=== PATIENT | female | born 1975 | race Hispanic/Latino ===

== ENCOUNTER 2016-05-27 05:53 | Observation (INO) | payer MEDICAID ==
--- NOTE | 2016-05-24 11:04 | Anesthesia Consultation ---
Anesthesia Consult and Med Hx Date of service: 05/24/16 (Scheduled for ALEXA su/ Dr. Castro on 05/27) - Airway Anesthetic Teeth Evaluation: Good ROM Head & Neck: Adequate Mental/Hyoid Distance: Adequate Mallampati Class: Class I Intubation Access Assessment: Probably Good - Pulmonary Exam CTA: Yes - Cardiac Exam Cardiac Exam: RRR - Pre-Operative Health Status ASA Pre-Surgery Classification: ASA2 Proposed Anesthetic Plan: General Nerve Block: TAP - Pre-Anesthesia Comment Pre-Anesthesia Comments: Pt denies previous anesthesia complications. She does have and smoking history with some wheezing on exam in pre-assessment. She reports she is out of her inhalers. Pt advised to go to PCP for further treatment prior to surgery. Pt has multiple body piercing and reports she is unable to remove any of her metal. Risks discussed with pt and she was advised she will to sign a release form on DOS if not removed. - Pulmonary Hx Smoking: Yes (1/2 PPD) Hx Asthma: Yes (last treated over 1 year ago, recent wheezing-out of inhaler) Hx Sleep Apnea: No - Central Nervous System Hx Psychiatric Problems: Yes (PTSD, bipolar d/o, depression) - Gastrointestinal Hx Gastroesophageal Reflux Disease: Yes (occassional) - Endocrine Hx Renal Disease: No Hx Non-Insulin Dependent Diabetes: No Hx Hypothyroidism: Yes - Other Systems Hx Alcohol Use: Yes (occas) Hx Substance Use: Yes (marijuana daily) Hx Cancer: No Hx Obesity: Yes (BMI= 36)
[2016-05-24 11:16] LABS: Basophils % (Auto) 0.5 % (0.0-1.8); Eosinophils % (Auto) 4.9 % (0.0-4.3); Hematocrit 40.7 % (30.3-42.9); Hemoglobin 13.1 gm/dl (10.1-14.3); Mean Corpuscular HGB Conc 32 % (30-34); Mean Corpuscular Volume 78 fl (79-97); Platelet Count 250 K/mm3 (140-440); Red Blood Count 5.22 M/mm3 (3.65-5.03); Red Cell Distribution Width 17.4 % (13.2-15.2); White Blood Count 9.4 K/mm3 (4.5-11.0)
[2016-05-24 11:17] LABS: Mean Corpuscular Hemoglobin 25 pg (28-32)
[2016-05-24 11:39] LABS: Anion Gap 15 mmol/L; Blood Urea Nitrogen 12 mg/dL (7-17); Calcium 8.8 mg/dL (8.4-10.2); Carbon Dioxide 24 mmol/L (22-30); Chloride 103.7 mmol/L (98-107); Glucose 112 mg/dL (65-100); Sodium 139 mmol/L (137-145)
[2016-05-27] MEDS ORDERED: NACL 0.9% 1000 ML 1,000 ML IV SCH (06:00)
[2016-05-27] MEDS ORDERED: VERSED IV NR (06:00)
[2016-05-27] MEDS ORDERED: PEPCID PO NR (06:00)
[2016-05-27] MEDS ORDERED: ANCEF/STERILE WATER 2 GM/20 ML IV NR (06:31)
[2016-05-27] MEDS ORDERED: NACL BACTERIOSTATIC INFILTRATI ONE (06:44)
[2016-05-27] MEDS ORDERED: ZOFRAN IV PRN ×2 (06:45→11:39)
--- NOTE | 2016-05-27 06:45 | Anesthesia Day of Surgery ---
Anesthesia Day of Surgery - Day of Surgery Patient Examined: Yes Patient H&P Reviewed: Yes Patient is NPO: Yes
--- NOTE | 2016-05-27 06:52 | Short Stay Summary ---
Short Stay Documentation Date of service: 05/27/16 Narrative H&P: C/O: Cervical dysplasia 40-year-old presents for hysterectomy. She is status post colposcopy on 04/13/2016 for LGSIL with results showing LILLIAM-3 and LILLIAM-2, invasive component cannot definitely be ruled out. She is status post transvaginal ultrasound out of the [facility] showed 11 cm uterus with fundal fibroid measuring 3 cm Endometrial biopsy is negative [employer] history irregular cycles, occasionally has 2 cycles per month, heavy last 7 days Medhx: Hypothyroidism on Synthroid, asthma, impaired GGT Sughx: Bilateral tubal ligation, liver biopsy which was negative Obhx: # 5 (last in 2004) Meds:Synthroid ALL:NKDA Fshx:Single, smoker Exam shows obesity otherwise unremarkable A: Severe cervical Dysplasia here for LAVH P: -After discussion of options for care, patient desires a hysterectomy. Explained that this will be an LAVH. We reviewed risks of surgery including but not limited to injury to surrounding organs and tissues especially the urinary system system. All her questions were answered and she signed consent -Proceed with surgery once OR available - History Past Medical History: hypothyroidism, other (Asthma) Past Surgical History: Other (Laoparoscopic tubal, liver biopsy) Social history: single, smoking, full code, no alcohol abuse, no prescription drug abuse, no IV drug use - Allergies and Medications Current Medications: Allergies No Known Allergies Allergy (Unverified 05/20/16 14:55) Home Medications Medication Instructions Recorded Confirmed Last Taken Type Biotin 1 mg PO DAILY 05/20/16 05/20/16 Unknown History Levothyroxine [Synthroid] 75 mcg PO QAM 05/20/16 05/20/16 Unknown History metFORMIN [Glucophage] 500 mg PO QDAY 05/20/16 05/20/16 Unknown History Active Medications Cefazolin Sodium (Ancef/Sterile Water 2 Gm/20 Ml) 2 gm IV PREOP NR Stop: 05/27/16 23:59 Famotidine (Pepcid) 20 mg PO PREOP NR Stop: 05/27/16 23:59 Hydromorphone HCl (Dilaudid) 0.5 mg IV Q10MIN PRN PRN Reason: Pain , Severe (7-10) Stop: 05/30/16 06:46 Sodium Chloride (Nacl 0.9% 1000 Ml) 1,000 mls @ 75 mls/hr IV DIRECT SAMIR Midazolam HCl (Versed) 2 mg IV PREOP NR Stop: 05/27/16 23:59 Ondansetron HCl (Zofran) 4 mg IV ONCE PRN PRN Reason: Nausea And Vomiting Stop: 05/27/16 06:46 - Physical exam General appearance: no acute distress, obese Lungs: Clear to auscultation, Normal air movement Breasts: deferred Heart: Regular rate, Normal S1, Normal S2 Gastrointestinal: normal, normoactive bowel sounds, no tenderness, no distended , no masses, no guarding, no organomegaly Female Genitourinary: normal Rectal Exam: deferred Extremities: no ischemia Short Stay Discharge Plan Follow up with: ESTHER PADILLA MD [Primary Care Provider] - 7 Days
[2016-05-27] MEDS ORDERED: NACL 0.9% 500 ML 500 ML IV ONE ×2 (06:54→07:33)
[2016-05-27] MEDS ORDERED: MARCAINE 0.25% INFILTRATI ONE ×2 (07:10→10:00)
[2016-05-27] MEDS ORDERED: DIPRIVAN 10 MG/ML IV ONE (07:21)
[2016-05-27] MEDS ORDERED: ZEMURON IV ONE (07:22)
[2016-05-27] MEDS ORDERED: XYLOCAINE MPF 2% ONE (07:22)
[2016-05-27] MEDS ORDERED: ROBINUL ONE (08:52)
[2016-05-27] MEDS ORDERED: NEOSTIGMINE ONE (08:52)
[2016-05-27] MEDS ORDERED: NACL 0.9% 1000 ML 0 ML ONE (09:07)
[2016-05-27] MEDS ORDERED: NACL 0.9% IR ONE (10:00)
[2016-05-27] MEDS ORDERED: ANCEF ONE (10:13)
[2016-05-27] MEDS ORDERED: NACL 0.9% 1000 ML 2,000 ML ONE (10:28)
--- NOTE | 2016-05-27 11:33 | Post Anesthesia Evaluation ---
- Post Anesthesia Evaluation Patient Participated: Yes Airway Patent: Yes Stable Respiratory Function: Yes Nausea/Vomiting: No Temp > 96.8F: Yes Pain Manageable: Yes Adequeate Hydration: Yes Anesthesia Complications: No
--- NOTE | 2016-05-27 11:38 | Operative Report ---
Operative Report Operative Report: DATE: 05/27/2016 PREOPERATIVE DIAGNOSIS: LILLIAM 3, Abnormal uterine bleeding,Fiibroid uterus POSTOP DIAGNOSIS: As above NAME OF PROCEDURE: Laparoscopic assisted vaginal hysterectomy with bilateral salpingectomy SURGEON: AMBROCIO LUNA MD PRIMARY TEACHING ASSISTANT: GALE SALAS ANESTHESIA: Gen. EBL: 300 mL PATHOLOGY SPECIMEN: Uterus, cervix and tubes URINE OUTPUT: 200 mL FINDINGS: Bulky appearing enlarged uterus, normal ovaries and tubes bilaterally , obesity with substantial subcutaneous fat, surgery was made difficult by obesity DESCRIPTION OF PROCEDURE: After informed consent, patient was taken to the operating room where she was prepped and draped in a sterile fashion. She was placed in dorsolithotomy position then a shah catheter was placed without difficulty . Nice speculum speculum was placed in the patient's vagina and single-tooth was used to grab the anterior lip. A Brandpotionare uterine manipulator was advanced into the patient's cervical os without difficulty and the balloon was inflated. Attention was then turned to the patient's abdomen where 1/4 percent Marcaine was injected then a 1-1/2 cm incision was made in the umbilical fold; using S retractors, the subcutaneous tissue was dissected down to exposed the fascia. Fascia was grasped with Sayra forceps, elevated and an incision was made in the midline using Metzenbaum scissors. Fascial incision was extended with use of Shahla forceps and then S retractors were placed in the incisional hole. Peritoneal layer was seen and grasped with Allises 2; this was elevated and incision was made in the midline using Metzenbaum scissors. S retractors were placed in the incisional hole in the peritoneum and then a Extra long Cooper trocar was advanced into the patient's abdomen without difficulty. CO2 gas was used to obtain intra-abdominal insufflation. Bulbous enlarged uterus was noted immediately; normal ovaries and tubes bilaterally. Attention was then turned to the patient's left and right lower quadrants where under direct visualization 10 mm trocars were advanced into the patient's abdomen without difficulty. Using 10 mm LigaSure, the round ligaments and the utero- ovarian ligaments on both sides were grasped and cauterized and transected. A bladder flap was created and pushed down the cervix towards the vagina. Uterine arteries on both sides were grasped with LigaSure then cauterized and transected. After a period of observation confirming hemostasis attention was then turned to the patient's vagina. The Shah catheter and a Vcare uterine manipulator were removed, and weighted speculum was placed in the patient's vagina. A single tenaculum was then used to grab the cervix. Using bovie, a circumferential incision was made around the cervix; the vaginal cuff was then pushed cephalad away from the cervix. Attention was then turned to the patient's posterior fornix; using smooth pickups, the peritoneal layer covering the posterior fornix was grasped, elevated and an incision made using Metzenbaums. Entry into the peritoneal cavity was confirmed then the long weighted speculum was placed into into the peritoneal opening. We then proceeded to serially grab the uterosacrals on both sides using Alisa forceps; these were clamped cut and suture ligated using 0 Vicryl. We Serially grabbed the cardinal ligament complex on both sides with Alisa clamps and proceeded to clamp cut and suture ligate these. We made sure the bladder was bladder flap was pushed away from our surgical site. The broad and the utero-ovarian ligaments had been previously transected from above. The uterus was then delivered from the vagina and removed from the surgical field. We then grabbed the vaginal cuff with Allis forceps and elevated this; using 0 Vicryl on a runner angle stitch was placed on the vaginal cuff and then the posterior cuff was closed in a running locked fashion. The anterior cuff was then closed using 0 Vicryl. This process disclosed entire vaginal cuff. We then turned our attention back to the patient's abdomen with insufflation was again obtained using CO2 gas. 10 mm laparoscope was advanced into the patient's abdomen without difficulty. The right and left fallopian tubes were then grasped and elevated and cauterized and transected using 10 mm LigaSure. Inspection of the vaginal cuff showed hemostasis; copious amounts of suction irrigation were used showing no active bleeding. This was despite reducing the intra-abdominal pressure slightly. Tisseel hemostatic agent was then placed over the vaginal cuff as a means to prevent future bleeding, Shruti was applied when mild oozing continued. All instruments were then withdrawn from the patient 's abdomen under direct visualization. Using steffanie harden, the fascial openings were closed using 0 Vicryl with a single [id number] stitch and then the skin was closed in a subcuticular manner with 4-0 Monocryl. Instrument counts were correct 2; she tolerated the procedure well she did receive 2 g of Ancef prior to the procedure and was transferred the PACU in stable condition thank you
[2016-05-27] MEDS ORDERED: SODIUM CHLORIDE FLUSH SYRINGE 10 ML IV PRN (11:39)
[2016-05-27] MEDS ORDERED: NARCAN 0.4 MG/1 ML IV PRN (11:39)
[2016-05-27] MEDS ORDERED: TYLENOL PO PRN (11:39)
[2016-05-27] MEDS ORDERED: MILK OF MAGNESIA PO PRN (11:39)
[2016-05-27] MEDS ORDERED: CLIMARA TD SCH (12:00)
[2016-05-27] MEDS: DILAUDID IV PRN ×2 (12:10→12:20)
[2016-05-27] MEDS: D5LR 1,000 ML IV SCH ×2 (13:30→23:53)
[2016-05-27] MEDS: NORCO 5/325 PO PRN (13:30)
[2016-05-27] MEDS: DILAUDID PCA 6MG/30ML IV SCH ×2 (15:05)
--- NOTE | 2016-05-27 15:57 | Admit Criteria Form ---
Admission Criteria Documentation: AMBULATORY SURGERY EXCEPTION CRITERIA Ambulatory Surgery Exception Criteria ( Place 'X' for any and all applicable criteria): Surgery or procedure performed on ambulatory basis may require inpatient stay for[A] ANY ONE of the following(1)(2)(3)(4)(5)(6)(7)(8)(9): [X I. A preoperative situation, condition, or finding that warrants inpatient stay as indicated by ANY ONE of the following: [X] a) Inpatient care needed because of severity of a disease or condition rather than the surgery (eg, severe cardiac or respiratory disease, severe infection) (15) (16 ) (17) (18) [] b) Emergent procedure (eg, angioplasty for acute ischemia)(19) [] c) Complex surgical approach or situation as indicated by ANY ONE of the following(3): [] i) Open approach needed instead of usual endoscopic, transcatheter, or other less invasive procedure [] ii) Difficult approach because of previous operation [] iii) Airway monitoring required after open neck procedures(20)(21) [] iv) Large mass requiring unusually extensive dissection [] v) Additional complicating feature requiring inpatient care (eg, drain management)(22(23): [] d) Major surgery in a pt with high anesthetic risk as indicated by ANY ONE of the following (2)(3)(5)(7)(8): [] i) ASA risk class III or higher (severe systemic disease impairing function) [D] [] ii) Advanced age (eg, older than 85 years)(14)(24) [] iii) Symptomatic heart failure(25) [] iv) Symptomatic asthma or COPD(8)(21) [] v) Morbid obesity with hemodynamic or respiratory problems(20)( 21)(26)(27) [] vi) Obstructive sleep apnea(20)(21) [] vii) Former premature infants who are younger than 60 weeks [] viii) High risk for severe postoperative abnormalities (eg, severe postoperative hypocalcemia after parathyroidectomy for severe hyperparathyroidism)(27)( 28) [] ix) Unstable angina(25) [] e) Drug-related risk requiring inpatient stay as indicated by ANY ONE of the following(5)(10)(14)(32)(33) [] i) Procedure requires discontinuing drugs or other therapy (eg , antiarrhythmic medication, antiseizure medication), which necessitates inpatient observation or treatment.(18)(31) [] ii) Major surgery and high risk drug use as indicated by ANY ONE of the following: [] 1) Active abuse of cocaine or similar drug [] 2) Monoamine oxidase inhibitor use [] 3) Other drug identified as posing risk [] f) Inadequate outpatient care situation as indicated by ANY ONE of the following(5)(10)(14)(32)(33) [] i) Patient lives remote from medical facility and procedure has urgent complication potential, and temporary nearby residence cannot be arranged [] ii) Patient will have postprocedure incapacitation and inadequate assistance at home, or alternative level of care cannot be arranged. [] iii) Patient will have long general anesthesia or procedure side effect resolution time, and competent person to stay with patient on first postoperative night at home or alternative level of care cannot be arranged. []iv) Other inadequate outpatient situation that cannot be handled by other means [] II. A perioperative event, condition, or finding that warrants inpatient stay as indicated by ANY ONE of the following (1)(2)(3): [] a) Inadequate physiologic recovery: cardiovascular, respiratory, or hemodynamic status not normal or near preoperative baseline(18) [] b) Hemodynamic instability [] c) Patient not alert with near normal or baseline mental status [] d) Temperature not normal or as expected and not appropriate for outpatient treatment of condition [] e) Ambulatory or appropriate activity level status not yet achieved post procedure [E](34)(35)(36) [] f) Operative site not appropriate (eg, unexpected or excessive drainage or bleeding) [] g) Postoperative effects not resolved or adequately managed (eg, significant pain or vomiting not appropriate for outpatient or next level of care)(10)(12) [] h) Complicating features requiring inpatient care as indicated by ANY ONE of the following(37): [] i) Severe complications of procedure (eg, bowel injury, airway compromise, vascular injury,severe hemorrhage) [] ii) Extensive (eg, dissection far beyond usual scope of procedure ) or prolonged (eg, 120 minutes beyond usual) surgery needed requiring inpatient postoperative care [] iii) Conversion to an open or complex procedure that requires inpatient care (eg, open vs laparoscopic cholecystectomy, abdominal vs vaginal hysterectomy)(38) [] iv) Comorbid condition or test result identified during or post procedure that requires inpatient care (7) [] v) Malignant hyperthermia(30) [] vi) Other complicating feature requiring inpatient care(22)(23) Inpatient stay may be needed until ALL of the following are present (1)(2)(3)(4) (5)(6)(10)(14)(33)(40): []a) Physiologic recovery: cardiovascular, respiratory, and hemodynamic status normal or near preoperative baseline []b) Hemodynamic stability []c) Patient alert, with near normal or baseline mental status []d) Temperature appropriate: patient afebrile or temperature appropriate for outpt treatment of condition []e) Activity level appropriate: ambulatory or appropriate activity level post procedure []f) Operative site appropriate as indicated by ALL of the following: []i) Site dry or with expected drainage []ii) Any blood noted is as expected for procedure. []g) Postoperative effects resolved or managed as indicated by ALL of the following: []i) Pain management appropriate for outpatient (or next level of) care(10) []ii) Minimal nausea and vomiting: if present, successfully treated with oral medication(12) []iii) Headache, dizziness, or drowsiness (if present) are mild. []h) Voiding status acceptable as indicated by ANY ONE of the following: []i) Voiding spontaneously []ii) No voiding but instructions given for follow-up in 6 to 8 hours []iii) Urinary catheter in place, and instructions given for follow-up []i) Complicating features requiring inpatient care manageable at a lower level of care(37) []j) Comorbid conditions manageable at a lower level of care(37) The original [employer] content created by [employer] has been revised. The portions of the content which have been revised are identified through the use of italic text or in bold, and [facility] has neither reviewed nor approved the modified material. All other unmodified content is copyright [employer]. Please see references footnoted in the original [employer] edition 2016 Admission Criteria Met: Yes
[2016-05-27 18:14] LABS: Hematocrit 34.7 % (30.3-42.9); Hemoglobin 10.9 gm/dl (10.1-14.3)
[2016-05-27] MEDS: COLACE PO SCH (23:53)
[2016-05-28 02:04] LABS: Hematocrit 33.1 % (30.3-42.9); Hemoglobin 10.8 gm/dl (10.1-14.3)
[2016-05-28] MEDS: D5LR 1,000 ML IV SCH (06:41)
[2016-05-28] MEDS: DILAUDID PCA 6MG/30ML IV SCH (06:42)
[2016-05-28] MEDS ORDERED: PROVENTIL IH PRN (08:05)
[2016-05-28 08:18] LABS: Hematocrit 34.1 % (30.3-42.9)
--- NOTE | 2016-05-28 08:24 | Progress Note ---
Assessment and Plan POD # 1 s/p LAVH -stable P: -Vaginal pack removed without difficulty -Respiratory therapy now -Encourage ambulation and use of incentive spirometer -Await BMP -Continue present care - Patient Problems (1) S/P laparoscopic assisted vaginal hysterectomy (LAVH) Current Visit: Yes Status: Acute Subjective - Subjective Date of service: 05/28/16 Principal diagnosis: POD # 1 s/p LAVH Interval history: Patient seen and examined, stable. She complains of pain with inspiration, and dyspnea. No chest pain. Her vitals are stable and she is satting over 98% on room air. Hemoglobin and hematocrit has remained stable at ~ 11/34. She has not used her incentive spirometer yet or ambulated No VB Patient reports: appetite normal, voiding normally, pain well controlled ( exception of pain on inspiration), no dizzy ambulation, no flatus, no ambulating normally, no nauseated Objective - Vital Signs Latest vital signs: Vital Signs Temp Pulse Pulse Resp BP BP Pulse Ox 05/28/16 03:55 98.7 F 68 18 97/57 05/28/16 00:25 97.8 F 56 L 18 92/54 05/27/16 22:20 18 05/27/16 20:30 18 05/27/16 20:10 59 L 18 98 05/27/16 20:05 98.2 F 61 20 100/76 05/27/16 18:15 16 05/27/16 16:35 97.5 F L 48 L 20 120/68 05/27/16 13:30 16 05/27/16 12:50 97.4 F L 56 L 16 112/70 96 05/27/16 12:31 59 L 12 123/86 97 05/27/16 12:20 14 05/27/16 12:15 76 14 129/66 96 05/27/16 12:10 14 05/27/16 12:00 77 14 127/76 96 05/27/16 11:50 59 L 17 127/65 95 05/27/16 11:45 78 17 126/87 97 05/27/16 11:40 69 18 129/63 97 05/27/16 11:36 97 F L 86 15 129/63 97 Intake and Output 05/27/16 05/28/16 05/28/16 22:59 06:59 14:59 Intake Total 1375 1000 180 Output Total 400 600 Balance 975 1000 -420 Intake: IV 1375 1000 D5lr 1,000 ml @ 125 mls/ 1375 1000 hr IV DIRECT SAMIR Rx#: [id number] Intake, Free Water 180 Output: Urine 400 600 Indwelling Catheter 400 600 Other: Total, Output Amount 400 600 Voiding Method Indwelling Catheter - Exam Cardiovascular: Present: Regular rate, Normal S1, Normal S2 Lungs: Present: Normal air movement, Other (bilateral wheezing heard) Abdomen: Present: normal appearance, soft, tenderness (appropriate. Incision tenderness), other (no CVA tenderness). Absent: distention, guarding, rigidity Extremities: Present: normal Incision: Present: intact, dressed - Labs Labs: Abnormal lab results 05/24/16 05/27/16 Range/Units 10:35 11:41 POC Glucose 154 H (70-105) Crossmatch See Detail
[2016-05-28 08:36] LABS: Anion Gap 14 mmol/L; Blood Urea Nitrogen 5 mg/dL (7-17); Calcium 7.7 mg/dL (8.4-10.2); Carbon Dioxide 23 mmol/L (22-30); Chloride 105.6 mmol/L (98-107); Glucose 128 mg/dL (65-100); Potassium 3.4 mmol/L (3.6-5.0); Sodium 139 mmol/L (137-145)
[2016-05-28] MEDS: NORCO 5/325 PO PRN ×3 (08:51→20:20)
[2016-05-28] MEDS: MYLICON PO PRN ×2 (08:52→18:04)
[2016-05-28] MEDS: COLACE PO SCH (11:05)
[2016-05-29] MEDS: NORCO 5/325 PO PRN ×2 (02:20→08:35)
[2016-05-29] MEDS: COLACE PO SCH (02:49)
--- NOTE | 2016-05-29 09:09 | Progress Note ---
Assessment and Plan POD # 2 s/p LAVH -stable P: -Discharged home -Follow up in clinic in 2 weeks for incision check - Patient Problems (1) S/P laparoscopic assisted vaginal hysterectomy (LAVH) Current Visit: Yes Status: Acute Subjective - Subjective Date of service: 05/29/16 Principal diagnosis: POD # 2 s/p LAVH Interval history: Patient seen and examined, stable. No new issues today, ambulating without difficulty with adequate bowel bladder function Patient reports: appetite normal, voiding normally, pain well controlled, flatus , ambulating normally, no dizzy ambulation Objective - Vital Signs Latest vital signs: Vital Signs Temp Pulse Resp BP 05/29/16 08:35 18 05/29/16 04:10 98.3 F 76 16 100/61 05/29/16 02:20 20 05/29/16 00:30 98.3 F 69 16 106/68 05/28/16 20:20 64 20 05/28/16 20:05 98.2 F 74 18 100/68 05/28/16 15:35 98.5 F 63 20 93/61 05/28/16 14:51 18 05/28/16 12:25 18 05/28/16 12:20 97.7 F 70 20 112/72 Intake and Output 05/28/16 05/29/16 05/29/16 22:59 06:59 14:59 Intake Total 600 380 Output Total 400 Balance 200 380 Intake: Oral 600 Intake, Free Water 380 Output: Urine 400 Void 400 Other: Total, Intake Amount 360 Total, Output Amount 200 # Voids Void 1 1 - Exam Abdomen: Present: normal appearance, soft. Absent: distention, tenderness, guarding, rigidity Extremities: Present: normal Incision: Present: dry, intact
--- NOTE | 2016-05-29 09:11 | Discharge Summary ---
Providers - Providers Date of Admission: 05/27/16 11:39 Date of discharge: 05/29/16 Attending physician: AMBROCIO LUNA Primary care physician: ESTHER PADILLA Hospitalization Reason for admission: other (s/p hysterectomy) Procedure: other (Laparoscopic assisted vaginal hysterectomy with bilateral salpingectomy) Incision: dry, intact Discharge diagnosis: other (status post LAVH) Hospital course: Uncomplicated postoperative course Condition at discharge: Good Disposition: DISCHARGED TO HOME OR SELFCARE - Discharge Diagnoses (1) S/P laparoscopic assisted vaginal hysterectomy (LAVH) Status: Acute Plan - Discharge Medications Prescriptions: HYDROcodone/APAP 5-325 [[place] 5/325] 1 each PO Q6HR PRN #30 tablet PRN Reason: Pain Ibuprofen [Motrin 600 MG tab] 600 mg PO Q8H PRN #30 tablet PRN Reason: Pain Multivitamin with Iron [Multivitamins with Iron] 1 each PO DAILY #30 tablet - Provider Discharge Summary Activity: no sex for 6 weeks, no heavy lifting 4 weeks, no strenuous exercise Diet: routine Additional instructions: [] Smoking cessation referral if applicable(refer to patient education folder for contact #) [] Refer to [facility]'s [facility] Booklet Call your doctor immediately for: * Fever > 100.5 * Heavy vaginal bleeding ( >1 pad per hour) * Severe persistent headache * Shortness of breath * Reddened, hot, painful area to leg or breast * Drainage or odor from incision. * Keep incision clean and dry at all times and follow doctor's instructions regarding bathing/showering - Follow up plan Follow up: ESTHER PADILLA MD [Primary Care Provider] - 7 Days AMBROCIO LUNA MD [Staff Physician] - 14 Days
[2016-05-29 09:31] VITALS: BP 96/70
== END 2016-05-29 10:35 | disposition home or self-care (01) ==
LOC: OR 05:53 → OB 11:39
PROVIDERS: ADMIT Obstetrics & Gynecology Gynecology; ATTEND Obstetrics & Gynecology Gynecology
DX: N93.9 Abnormal uterine and vaginal bleeding, unspecified (principal); D25.9 Leiomyoma of uterus, unspecified; E03.9 Hypothyroidism, unspecified; J45.909 Unspecified asthma, uncomplicated; K21.9 Gastro-esophageal reflux disease without esophagitis; E66.9 Obesity, unspecified; F10.10 Alcohol abuse, uncomplicated; F17.200 Nicotine dependence, unspecified, uncomplicated; F12.90 Cannabis use, unspecified, uncomplicated; Z68.36 Body mass index [BMI] 36.0-36.9, adult; Z90.710 Acquired absence of both cervix and uterus; Z90.722 Acquired absence of ovaries, bilateral
CPT/HCPCS: 36415; 58571; 80048; 82962; 84703; 85014; 85018; 85025; 86850; 86900; 86901; 86920; 88305; 88307; 94640; 96374; 96375; 96376; C9250; G0378; J0690; J1170; J2250; J2405; J2704; J2710; J7030; J7121

== ENCOUNTER 2016-08-08 16:42 | Emergency (ER) | payer MEDICAID | END 2016-08-08 16:55 | disposition left against medical advice (07) | LOC: ED 16:42 | DX: N99.89 Other postprocedural complications and disorders of genitourinary system (principal); Z53.21 Procedure and treatment not carried out due to patient leaving prior to being seen by health care provider ==